=== PATIENT | male | born 1935 | race Caucasian/White ===

== ENCOUNTER 2018-07-26 09:00 | Inpatient (IN) | payer MEDICARE, BC ==
[~2018-07-26] VITALS: Ht 188 cm; Wt 91.0 kg
[2018-07-26 09:04] VITALS: BP 183/76
[2018-07-26 09:26] LABS: HEMATOCRIT 37.6 % (42.0-52.0); HEMOGLOBIN 12.9 gm/dL (14.0-18.0); MCH 30.9 pg (26.0-34.0); MCHC 34.2 g/dL (28.0-37.0); MCV 90.4 fL (80.0-100.0); NUCLEATED RBCS 0 /100WBC; PLATELET COUNT* 196 thou/uL (150-400); RBC 4.16 mil/uL (4.50-6.00); RDW-CV 15.9 % (10.5-14.5)
[2018-07-26] MEDS ORDERED: TYLENOL EXTRA500 MG PO (09:28)
[2018-07-26] MEDS ORDERED: LIPITOR 20 MG T20 M1 PO (09:28)
[2018-07-26] MEDS ORDERED: PLAVIX 75 MG TA75 MG PO (09:28)
[2018-07-26] MEDS ORDERED: CARDIZEM CD240 MG PO (09:29)
[2018-07-26] MEDS ORDERED: VOLTAREN GEL 1100 G2 TOP (09:29)
[2018-07-26] MEDS ORDERED: VITAMIN B-12500 MCG PO (09:29)
[2018-07-26] MEDS ORDERED: HYDRALAZINE 2525 MG PO (09:30)
[2018-07-26] MEDS ORDERED: TRICOR145 MG PO (09:30)
[2018-07-26] MEDS ORDERED: PROTONIX40 M1 PO (09:31)
[2018-07-26] MEDS ORDERED: CARAFATE1 GM PO (09:31)
[2018-07-26] MEDS ORDERED: PRINIVIL20 MG PO (09:31)
[2018-07-26] MEDS ORDERED: ISOSORBIDE MONO10 MG PO (09:31)
[2018-07-26 09:42] LABS: ALBUMIN 3.5 g/dL (3.4-5.0); ALKALINE PHOSPHATASE 34 U/L (46-116); ANION GAP 10 mmol/L (7-16); BUN 21 mg/dL (7-18); CALCIUM 9.1 mg/dL (8.5-10.1); CHLORIDE 105 mmol/L (98-107); CO2 24 mmol/L (21-32); CREATININE 1.3 mg/dL (0.6-1.3); GLUCOSE 213 mg/dL (70-99); LIPASE 94 U/L (73-393); MAGNESIUM 1.4 mg/dL (1.8-2.4); POTASSIUM 3.1 mmol/L (3.5-5.1); SGOT 13 U/L (15-37); SGPT 15 U/L (30-65); SODIUM 139 mmol/L (136-145); TOTAL BILIRUBIN 0.8 mg/dL (<0.1-1.0); TROPONIN-I LEVEL <0.06 ng/mL (<0.06)
[2018-07-26 09:54] LABS: ABSOLUTE LYMPHOCYTES 0.6 thou/uL (0.8-5.3); ABSOLUTE MONOCYTES 0.3 thou/uL (0.0-1.2); ABSOLUTE NEUTROPHILS 8.1 thou/uL (1.6-8.1); PLATELET ESTIMATE ADEQUATE
[2018-07-26 13:29] VITALS: BP 166/69
[2018-07-26 16:00] VITALS: BP 162/62
--- NOTE | 2018-07-26 19:44 | NUR ---
PT ARRIVED TO ROOM 221 AT APPROX 1350, ADMISSION DONE CHARTED. PT A/O X4, [place], DENIES CP ON ARRIVAL. BP SLIGHLTY ELEVATED, ALL OTHER VSS, SB ON THE MONITOR. ACCU CHECK DONE, MEDS GIVEN PER SEP, FALL PRECAUIONS IN PLACE. CALL LIGHT IN REACH.REPORT GIVEN TO HETAL HENAO
[2018-07-26 20:00] VITALS: BP 171/68
[2018-07-27] VITALS: BP 169/58
[2018-07-27 01:00] LABS: ABSOLUTE BASOPHILS 0.1 thou/uL (0.0-0.2); ABSOLUTE MONOCYTES 0.6 thou/uL (0.0-1.2); ABSOLUTE NEUTROPHILS 11.4 thou/uL (1.6-8.1); BASOPHILS 0.4 %; EOSINOPHILS 0.1 %; HEMATOCRIT 36.8 % (42.0-52.0); HEMOGLOBIN 12.5 gm/dL (14.0-18.0); LYMPHOCYTES 7.7 %; MCH 30.8 pg (26.0-34.0); MCV 90.5 fL (80.0-100.0); MONOCYTES 4.8 %; MPV 9.7 fl. (7.2-11.1); NUCLEATED RBCS 0 /100WBC; PLATELET COUNT* 222 thou/uL (150-400); RBC 4.06 mil/uL (4.50-6.00); RDW-CV 15.7 % (10.5-14.5)
[2018-07-27 01:46] LABS: ANION GAP 7 mmol/L (7-16); BUN 21 mg/dL (7-18); CALCIUM 9.1 mg/dL (8.5-10.1); CHLORIDE 107 mmol/L (98-107); CHOLESTEROL 135 mg/dL (<200); CO2 24 mmol/L (21-32); CREATININE 1.1 mg/dL (0.6-1.3); GLUCOSE 126 mg/dL (70-99); HDL CHOLESTEROL 33 mg/dL (>40); LDL CHOLESTEROL 84 mg/dL (<100); POTASSIUM 3.8 mmol/L (3.5-5.1); SERUM ASSESSMENT CLEAR; SODIUM 138 mmol/L (136-145); TC:HDL 4.1 Ratio (Not establshd); TRIGLYCERIDE 93 mg/dL (<150); VLDL 19 mg/dL (<40)
[2018-07-27 04:00] VITALS: BP 164/66
--- NOTE | 2018-07-27 04:36 | NUR ---
ASSUMED CARE OF PT AFTER REPORT AT 1930. PT A&OX4. VSS. PHSYICAL ASSESSMENT COMPLETED AND CHARTED. PT ON O2 AT 97% O2 SAT. PT TRACING SR/SB/PVC ON TELE. PT UPSTANDBY TO RESTROOM. INSTRUCTED ON NPO POST MIDNIGHT FOR STRESS TEST TODAY. COMMMUNICATES UNDESRTANDING. DENIES ANY PAIN OR DISCOMFORT. CALL LIGHT WITHIN REACH. BED IN LOW POSITION.
[2018-07-27 08:00] VITALS: BP 189/71
--- NOTE | 2018-07-27 10:18 | EKG ---
[place] [address] ELECTROCARDIOGRAM REPORT Name: DANIEL TUTTLE Room: [address] ADM IN .R.#: [id number] Admission: 07/26/18 Attend Phys: Dave Hutson MD Discharge: Date of : 33 Report #: [id number] THIS REPORT FOR: //name// [facility] ED Test Date: 2018-07-26 Test Time: 09:04:32 Pat Name: DANIEL CHAMORRORD Department: Room: [facility] Gender: M Brownell Operator: : 1935 Requested By: Gagan Mchugh Order Number: [id number] MD: Agustin Kelly Measurements Intervals [place] Rate: 73 P: 0 CA: 186 QRS: -6 QRSD: 98 T: 121 QT: 437 QTc: 482 Interpretive Statements Sinus rhythm Abnormal R-wave progression, early transition Nonspecific repol abnormality, lateral leads No previous ECG available for comparison Electronically Signed On 07-27-2018 10:18:30 EXPERIMENTAL PREFLIGHT MECHANIC by Agustin Kelly [email or web address] <ELECTRONICALLY SIGNED> By: Agustin Kelly MD, [facility] 07/27/18 1018 0904 0904 Agustin Kelly MD, [facility] /EPI
--- NOTE | 2018-07-27 11:02 | NUR ---
Pt is A&O. Resides at home with his , dtr, granddtr and great granddtr. Pt is independent with ADLs, Pt no longer drives, family provides transportation. Pt uses a walker for mobility. Pt has a home cpap, Pt [facility], but the company has since changed and he does not recall the name of the new company. Hx of , set up through [facility], does not recall the name of the agency. No hx of SNF. Goal is to return home at [place], no needs anticipated. Following.
[2018-07-27 11:18] VITALS: BP 175/68
[2018-07-27 15:20] VITALS: BP 117/57
--- NOTE | 2018-07-27 15:28 | 2DMMODE ---
[place] [address] 2 D/M-MODE ECHOCARDIOGRAM Name: DANIEL TUTTLE Room: [address] IN [facility]#: [id number] Admission: 07/26/18 Attend Phys: Dave Hutson, Discharge: Date of : 33 Date of Service: 07/27/18 1528 Report #: [id number] THIS REPORT FOR: //name// APPROVED REPORT Study performed: 07/27/2018 10:17:35 EXAM: Comprehensive 2D, Doppler, and color-flow Echocardiogram Patient Location: In-Patient Room #: [facility] Status: routine BSA: 2.14 HR: 49 bpm BP: 189/71 mmHg Rhythm: NSR Other Information Study Quality: Good Indications Chest Pain 2D Dimensions IVSd: 12.95 (7-11mm) LVOT Diam: 24.23 (18-24mm) LVDd: 50.73 mm PWd: 11.70 (7-11mm) Ascending Ao: 32.55 (22-36mm) LVDs: 29.78 (25-40mm) Aortic Root: 38.75 mm Volumes Left Atrial Volume (Systole) LA ESV Index: 31.10 mL/m2 Aortic Valve AoV Peak Dima.: 1.56 m/s AO Peak Gr.: 9.79 mmHg LVOT Max P.73 mmHg AO Mean Gr.: 4.84 mmHg LVOT Mean P.63 mmHg LVOT Max V: 0.97 m/s AO V2 VTI: 35.36 cm LVOT Mean V: 0.58 m/s [place] (VTI): 3.22 cm2 LVOT V1 VTI: 24.71 cm AI [place]: 1.87 m/s2 AI PHT: 644.12 ms Mitral Valve E/A Ratio: 0.86 [place] [address] 2 D/M-MODE ECHOCARDIOGRAM Name: DANIEL TUTTLE Room: [address] IN [facility].#: [id number] Admission: 07/26/18 Attend Phys: Dave Hutson, Discharge: Date of : 33 Date of Service: 07/27/18 1528 Report #: [id number] MV Decel. Time: 540.78 ms MV E Max Dima.: 0.54 m/s MV PHT: 156.83 ms MVA (PHT): 1.40 cm2 TDI E/Lateral E': 4.50 E/Medial E': 4.91 Medial E' Dima.: 0.11 m/s Lateral E' Dima.: 0.12 m/s Pulmonary Valve PV Peak Dima.: 0.90 m/s PV Peak Gr.: 3.23 mmHg Tricuspid Valve RAP Estimate: 5.00 mmHg TR Peak Gr.: 29.18 mmHg RVSP: 34.00 mmHg PA Pressure: 34.00 mmHg Left Ventricle The left ventricle is normal size. There is normal LV segmental wall motion. There is normal left ventricular wall thickness. Left ventricular systolic function is normal. The left ventricular ejection fraction is within the normal range. LVEF is 55-60%. Grade I - abnormal relaxation pattern. Right Ventricle The right ventricle is normal size. The right ventricular systolic function is normal. Atria The left atrium size is normal. The right atrium size is normal. Aortic Valve Mild aortic valve sclerosis. Mild aortic regurgitation. There is no aortic valvular stenosis. Mitral Valve Mild mitral annular calcification. Mild mitral regurgitation. No evidence of mitral valve stenosis. Tricuspid Valve The tricuspid valve is normal in structure. Trace tricuspid regurgitation. Mild pulmonary hypertension[place] [address] 2 D/M-MODE ECHOCARDIOGRAM Name: DANIEL TUTTLE Room: [address]#: [id number] Admission: 07/26/18 Attend Phys: Dave Hutson, Discharge: Date of : 33 Date of Service: 07/27/18 1528 Report #: [id number] The pulmonary valve is normal in structure. There is no pulmonic valvular regurgitation. Great Vessels The aortic root is normal in size. IVC is normal in size and collapses >50% with inspiration. Pericardium There is no pericardial effusion. <Conclusion> The left ventricle is normal size. There is normal left ventricular wall thickness. Left ventricular systolic function is normal. The left ventricular ejection fraction is within the normal range. LVEF is 55-60%. Grade I - abnormal relaxation pattern. The right ventricle is normal size. The left atrium size is normal. Mild aortic valve sclerosis. Mild aortic regurgitation. There is no aortic valvular stenosis. Mild mitral annular calcification. Mild mitral regurgitation. No evidence of mitral valve stenosis. The tricuspid valve is normal in structure. IVC is normal in size and collapses >50% with inspiration. There is no pericardial effusion. There is normal LV segmental wall motion. <ELECTRONICALLY SIGNED> By: Agustin Kelly MD, FACC 07/27/18 1528 1528 1528 Agustin Kelly MD, FACC /INF
--- NOTE | 2018-07-27 16:57 | CARDNUC ---
[place] [address] CARDIAC NUCLEAR IMAGING REPORT Name: DANIEL TUTTLE Room: [address] IN [facility]#: [id number] Admission: 07/26/18 Attend Phys: Dave Hutson, Discharge: Date of : 33 Date of Service: 07/27/18 1656 Report #: [id number] THIS REPORT FOR: //name// APPROVED REPORT Imaging Protocol: Rest Tc-99m/Stress Tc-99m 1 day Study performed: 07/26/2018 16:04:00 Indication: Chest pain, Dyspnea Patient Location: In-Patient Room #: 221 Stress Tech: Lianne Cox Stress Nurse: Keshia Hernandez RN NM Tech:MARC Brothers Ht: 6 ft 2 in Wt: 192 lbs BSA: 2.14 m2 BMI: 24.64 Medical History Medical History: cad, hyperlipidemia, hypertension, diabetes Medications: atorvastatin, enoxaparin, hydralazine, qyo280, clopidogrel, diltiazem, lisinopril Allergies: nkda Cardiac Risk Factors: age, hyperlipidemia, hypertension, diabetes, family hx Exercise History: Sedentary Resting Data Rest SPECT myocardial perfusion imaging was performed in supine position 30 minutes following the intravenous injection of 11.6 mCi of Tc-99m Sestamibi. Time of rest injection: 1130 Date: 07/27/2018 Time of rest imagin The images were gated to evaluate regional wall motion and calculate left ventricular ejection fraction. Administration Route: IV Pharmacologic Stress Pharmacologic stress test was performed by injecting Regadenoson 0.4 mg IV push over 10-15 seconds immediately followed by the intravenous injection of 34.0 mCi of Tc-99m Sestamibi. Time of stress injection: 1330 Time of stress imagin Administration Route: [place] [address] CARDIAC NUCLEAR IMAGING REPORT Name: DANIEL TUTTLE Room: [address]#: [id number] Admission: 07/26/18 Attend Phys: Dave Hutson, Discharge: Date of : 33 Date of Service: 07/27/18 1656 Report #: [id number] Gated Stress SPECT was performed 40 minutes after stress injection. The images were gated to evaluate regional wall motion and calculate left ventricular ejection fraction. Stress only was performed in the Supine position. Stress Test Details Stress Test: Pharmacologic stress testing performed using 0.4 mg of regadenoson per 5 mL given IV over 10 seconds. Reason for pharmacologic stress test: physical limitation. HR Max Heart Rate (APMHR): 136 bpm Resting HR: 54 bpm Target HR (85% APMHR): 115 bpm Max HR Achieved: 76 bpm % of APMHR: 55 Recovery HR: 76 bpm HR response to stress: Normal HR response to stress BP Resting BP: 152/88 mmHg Max BP: 141/72 mmHg Recovery BP: 161/82 mmHg BP response to stress: Normal blood pressure response to stress. ECG Resting ECG: Sinus Rhythm Stress ECG: Sinus Rhythm ST Change: None Recovery ECG: Sinus Rhythm Clinical Reason for Termination: Completed protocol Stress Symptoms: None Exercise duration: 0 min sec Exercise capacity: 1 METs Nurse Comments pt unable to stand unassisted. cannot walk on treadmill Stress ECG Conclusion negative ecg Study Quality Study: Fair Artifact: Mild Increased GI uptake Lung Uptake: [place] [address] CARDIAC NUCLEAR IMAGING REPORT Name: DANIEL TUTTLE Room: [address]#: [id number] Admission: 07/26/18 Attend Phys: Dave Hutson, Discharge: Date of : 33 Date of Service: 07/27/18 1656 Report #: [id number] Study Data At rest, the left ventricular ejection fraction was 69%.. Post stress, the left ventricular ejection was 69%.. SSS: 9 SRS: 6 SDS: 3 Perfusion Review of SPECT images at rest demonstrate a large ,severe intensity inferior defect and normal perfusion in other segments. When imaged following vasodilator stress the defect is noted worsen, positive for ischemia. Most of the large defect is reversible. Images were reviewed using [employer]. Wall Motion normal all segments Nuclear Conclusion ECG Findings: negative for ischemia Clinical Findings: negative for ischemia Nuclear Findings: negative for ischemia Exercise Capacity: not assessed Left Ventricular Function: normal Perfusion nuclear stress test positive for at least moderate inferior ischemia. Normal LV function. <Conclusion> negative ecg <ELECTRONICALLY SIGNED> By: Mark Conrad MD, FACC 07/27/18 1656 55 55 Mark Conrad MD, FACC /INF
--- NOTE | 2018-07-27 18:48 | NUR ---
ASSUMED PT CARE AT 0730, FULL ASSESMENT DONE CHARTED. PT A/O X4, [place], NPO THIS AM FOR STRESS TEST. TEST ABNORMAL, PT TO BE TRANSFERED TO [facility], DTR NOTIFIED, AWAITING APPROVAL TONIGHT AND ROOM NUMBER. PT DENIES CHEST PAIN, VSS, SB/SR/PVC'S ON THE MONITOR. FALL PRECAUTIONS IN PLACE, CALL LIGHT IN REACH,PT USES IT APPROPRIALTY. WILL CONTINUE WITH PLAN OF CARE
--- NOTE | 2018-07-27 20:51 | NUR ---
ASSUMED CARE OF PT AFTER REPORT AT 1930. PT A&OX4. VSS. PHYSICAL ASSESSMENT COMPLETED AND CHARTED. PT ON RA. PT UPSTANDBY. PT WITH ORDER TO TRANSFER TO [facility]. GAVE REPORT TO [facility]. REMOVED AUDIO INSTALLER. BELONGINGS PACKED AND ACCOUNTED FOR PT. PT TRANSFERRED VIA CART IN AMBULANCE TO [facility] AT 2044. NO PROBLEMS TO NOTE AT TIME OF TRANSFER.
== END 2018-07-27 20:58 | disposition short-term general hospital (02) | DRG 303 ==
LOC: M.ERS 09:00 → M.TBA-ER 10:20 → M.2W 10:20
PROVIDERS: Emergency Medicine Emergency Medical Services; ADMIT Internal Medicine
DX: I25.110 Atherosclerotic heart disease of native coronary artery with unstable angina pectoris (principal); I10 Essential (primary) hypertension; E11.9 Type 2 diabetes mellitus without complications; K21.9 Gastro-esophageal reflux disease without esophagitis; M19.90 Unspecified osteoarthritis, unspecified site; E78.5 Hyperlipidemia, unspecified; Z86.73 Personal history of transient ischemic attack (TIA), and cerebral infarction without residual deficits; Z79.899 Other long term (current) drug therapy; Z79.82 Long term (current) use of aspirin